=== PATIENT | male | born 1960 | race Hispanic/Latino ===

== ENCOUNTER 2018-12-23 15:49 | Inpatient (IN) | payer OTHER ==
[2018-12-23 15:50] VITALS: PULSE 73; BMI 34.7
[2018-12-23 15:56] VITALS: O2SAT 95
--- NOTE | 2018-12-23 16:01 | ED PDOC ---
Psych Transfer Clearance - Clearance Statement Clearance Statement: Reviewed vital signs, lab results and transfer papers. Patient clinically stable for psychiatric admission.
[2018-12-23] MEDS ORDERED: DiphenhydrAMINE 50 mg/ml Inj IM PRN (16:40)
[2018-12-23] MEDS ORDERED: Magnesium Hydroxide Susp 30 ml UD PO PRN (16:40)
[2018-12-23] MEDS ORDERED: Alum-Mag Hydrox-Simethicone Susp (30 mL) PO PRN (16:40)
--- NOTE | 2018-12-23 17:22 | PCM.BM ---
<DemarioCassie - Last Filed: 12/23/18 17:20> Treatment Plan Problems - Problems identified on initial assessmt Feelings of Worthlessness Date Initiated: 12/23/18 Time Initiated: 17:21 Assessment reference: NA Status: Active Denial Date Initiated: 12/23/18 Time Initiated: 17:21 Assessment reference: NA Status: Active Altered Sleep Patterns Date Initiated: 12/23/18 Time Initiated: 17:22 Assessment reference: NA Status: Active Knowlege Deficit: Alcohol Use Date Initiated: 12/23/18 Time Initiated: 17:23 Assessment reference: NA Status: Active Treatment assets and liabiliti Patient Assests: ADL independent, negotiates basic needs, cognitively intact Patient Liabilities: relationship conflicts, other (Homelessness) - Milieu Protocol Maintain good personal hygiene: daily Encourage regular showers, every shift Remind patient to perform daily oral care, every shift Assist patient to perform ADL's Conduct patient checks and document Observation sheet: Q15 minutes Maintain personal safety: every shift Educate patient to report safety concerns to staff, every shift Monitor environment for contraband/sharps Medication safety: Monitor for expected outcome, potential side effects: every shift, Assess barriers to learning: every shift, Assess readiness for medication education: every shift <Hans Ruiz - Last Filed: 12/27/18 10:29> Family Contact Family involvement: Famliy/SO not involved Family contact: Patient declines to allow family contact at present Family contact name: Pt refused. - Goals for Treatment Patient goals for treatment: Pt reported he is too depressed to formulate goals at this time. However, pt is focused on obtaining help with obtaining stable housing. Discharge/Continuing Care - Education Needs Education Needs: Patient Medication, Patient Diagnosis/Disease Process, Patient Coping Skills, Patient Community resources, Patient Aftercare Safety Plan - Discharge Discharge Criteria: Tolerates medication w/o severe side effects, Free of Suicidal thoughts, Free of agitation, Ability to care for self, Reduction of target symptoms Discharge to:: Group Home - Treatment Team Participation Patient/Family/SO Statement: 12/27/18 10:30 Pt seen in treatment team on 12/26/18 from 1025 until 1027. Pt reported he is "sad." Pt reported he left [employer] and "came right here." Raising of Effexor was discussed. Pt offered no questions or complaints. Pt observed as minimally cooperative, guarded, evasive with underproductive speech. Pt sat with arms crossed, looking down at the table with irritated affect. Pt's affect and mood were rather fixed and not broad. His speech was soft and slow. Pt's thought content and process were logical, yet stagnant. Pt admitted to continued passive SI, but he denied HI and AVT hallucinations. Pt is oriented X4. Pt reported he is on the [facility] list at the [facility]. Pt presented as helpless and hopeless. Discussed with Family/SO: No Was Patient/Family/SO present at Treatment Team Meeting: Yes <Narcisa Brito - Last Filed: 12/27/18 10:38> - Diagnosis (1) Depressive disorder Status: Acute Interventions: 12/27/18 10:38 pharmacotherapy, psychotherapy
--- NOTE | 2018-12-23 17:48 | CP.PCM.CON ---
History of Present Illness - History of Present Illness History of Present Illness: 58 yo male admitted to psyche unit because of worsening depression. Review of Systems - Review of Systems All systems: reviewed and no additional remarkable complaints except (aside from those mentioned above, 12 point system review were negative by me) Past Patient History - Infectious Disease Hx of Infectious Diseases: None - Tetanus Immunizations Tetanus Immunization: Unknown - Past Medical History & Family History Past Medical History?: Yes - Past Social History Smoking Status: Former Smoker Chewing Tobacco Use: No Cigar Use: No Alcohol: > 2 Drinks/Day Drugs: Denies - CARDIAC Hx Atrial Fibrillation: Yes Hx Cardia Arrhythmia: Yes (afib) Hx Hypertension: Yes (x 6yrs, takes meds on and off) Hx Peripheral Edema: Yes - PULMONARY Hx Tuberculosis: No - NEUROLOGICAL Hx Neurological Disorder: No HX Cerebrovascular Accident: No Hx Seizures: No - HEENT Hx HEENT Problems: No - RENAL Hx Chronic Kidney Disease: No - ENDOCRINE/METABOLIC Hx Endocrine Disorders: No - HEMATOLOGICAL/ONCOLOGICAL Hx Blood Disorders: No Hx Cancer: No Hx Human Immunodeficiency Virus (HIV): No - INTEGUMENTARY Hx Dermatological Problems: No - MUSCULOSKELETAL/RHEUMATOLOGICAL Hx Fractures: Yes - GASTROINTESTINAL Hx Gastrointestinal Disorders: No - GENITOURINARY/GYNECOLOGICAL Hx Genitourinary Disorders: No Hx Sexually Transmitted Disorders: No - PSYCHIATRIC Hx Depression: Yes (hx of dep since age 43) Hx Physical Abuse: No Hx Sexual Abuse: No Hx Substance Use: No - SURGICAL HISTORY Hx Surgeries: Yes Hx Orthopedic Surgery: Yes Other/Comment: had sx to drain left elbow infection 10 yrs ago - ANESTHESIA Hx Anesthesia: Yes Meds Allergies/Adverse Reactions: Allergies Allergy/AdvReac Type Severity Reaction Status Date / Time bee venom protein (honey bee) Allergy URTICARIA Verified 12/23/18 11:35 - Medications Medications: Current Medications Acetaminophen (Tylenol 325mg Tab) 650 mg PO Q4 PRN PRN Reason: Pain, moderate (4-7) Al Hydrox/Mg Hydrox/Simethicone (Maalox Plus 30 Ml) 30 ml PO Q4 PRN PRN Reason: Dyspepsia Diphenhydramine HCl (Benadryl) 50 mg IM Q6 PRN PRN Reason: Extrapyramidal S/S Unable PO Diphenhydramine HCl (Benadryl) 50 mg PO Q6 PRN PRN Reason: Muscle spasm Haloperidol (Haldol) 5 mg PO Q4 PRN PRN Reason: Agitation Haloperidol Lactate (Haldol) 5 mg IM Q4 PRN PRN Reason: Agitation, Unable to Take PO Lorazepam (Ativan) 2 mg IM Q4 PRN PRN Reason: Anxiety/Agitation,Unable PO Lorazepam (Ativan) 2 mg PO Q6 PRN PRN Reason: Agitation Magnesium Hydroxide (Milk Of Magnesia) 30 ml PO HS PRN PRN Reason: Constipation Venlafaxine HCl (Effexor Xr) 150 mg PO DAILY NABILA Physical Exam - Constitutional Appears: No Acute Distress - Head Exam Head Exam: ATRAUMATIC - Eye Exam Eye Exam: absent: Scleral icterus - ENT Exam ENT Exam: Mucous Membranes Moist - Neck Exam Neck exam: Negative for: Meningismus - Respiratory Exam Respiratory Exam: absent: Rales, Rhonchi, Wheezes, Respiratory Distress - Cardiovascular Exam Cardiovascular Exam: REGULAR RHYTHM, +S1, +S2 - GI/Abdominal Exam GI & Abdominal Exam: Soft. absent: Tenderness - Rectal Exam Rectal Exam: Deferred - Neurological Exam Neurological exam: Alert, Oriented x3 - Psychiatric Exam Psychiatric exam: Normal Affect - Skin Skin Exam: Dry, Intact Results - Vital Signs Recent Vital Signs: Last Vital Signs Temp 98.7 F 12/23/18 15:50 Pulse 70 12/23/18 16:40 Resp 19 12/23/18 15:50 BP 119/81 12/23/18 15:55 Pulse Ox 95 12/23/18 15:50 Assessment & Plan (1) Depressive disorder Status: Acute Comment: psyche is managing
[2018-12-24] MEDS: Venlafaxine 150 mg ER Cap PO SCH (08:49)
--- NOTE | 2018-12-24 11:04 | PCM.PSYCH ---
Initial Psychiatric Evaluation - Initial Psychiatric Evaluation Type of Admission: Voluntary Legal Status: Capacity Chief Complaint (in patient's own words): I feel depressed and anxious History of Present Illness and Precipitating Events: pt is 58 ys old male with previous diagnosis of depression and alcohol dependence, came to ER seeking help due to increased depression with passive suicidal ideation, pt has been with [employer] for past six months , was feeling overwhelmed because of the magnitude of work, pt decided to leave, now became homeless and facing multiple financial difficulties denied active thoughts of self harm on the unit,denied perceptual disturbances Current Medications: Active Medications Generic Name Dose Route Start Last Admin Trade Name Freq PRN Reason Stop Dose Admin Acetaminophen 650 mg 12/23/18 16:40 Tylenol 325mg Tab PO Q4 PRN Pain, moderate (4-7) Al Hydrox/Mg Hydrox/Simethicone 30 ml 12/23/18 16:40 Maalox Plus 30 Ml PO Q4 PRN Dyspepsia Diphenhydramine HCl 50 mg 12/23/18 16:40 Benadryl IM Q6 PRN Extrapyramidal S/S Unable PO Diphenhydramine HCl 50 mg 12/23/18 16:50 12/23/18 21:10 Benadryl PO 50 mg Q6 PRN Administration Muscle spasm Diphenhydramine HCl 50 mg 12/23/18 21:20 Benadryl PO HS PRN Sleep Docusate Sodium 100 mg 12/23/18 18:45 12/24/18 08:49 Colace PO 100 mg BID NABILA Administration Gabapentin 200 mg 12/24/18 13:00 Neurontin PO TID NABILA Haloperidol 5 mg 12/23/18 16:40 Haldol PO Q4 PRN Agitation Haloperidol Lactate 5 mg 12/23/18 16:40 Haldol IM Q4 PRN Agitation, Unable to Take PO Hydroxyzine Pamoate 50 mg 12/24/18 10:53 Vistaril PO Q8 PRN Anxiety Lorazepam 2 mg 12/23/18 16:40 Ativan IM Q4 PRN Anxiety/Agitation,Unable PO Magnesium Hydroxide 30 ml 12/23/18 16:40 Milk Of Magnesia PO HS PRN Constipation Venlafaxine HCl 150 mg 12/24/18 09:00 12/24/18 08:49 Effexor Xr PO 150 mg DAILY NABILA Administration Past Psychiatric History - Past Psychiatric History Explanation of prior treatment: multiple hospitalizations at [facility] for detox History of ETOH/Drug Use: alcohol dependence in remission Pertinent Medical Hx (Current Medical&Sleep Prob, Allergies): Allergies Allergy/AdvReac Type Severity Reaction Status Date / Time bee venom protein (honey bee) Allergy URTICARIA Verified 12/23/18 11:35 Zoloft 12/23/18 Mental Status Examination - Personal Presentation Personal Presentation: Looks older than stated age - Affect Affect: Constricted, Depressed - Motor Activity Motor Activity: Psychomotor Retardation - Reliability in Providing Information Reliability in Providing Information: Fair - Speech Speech: Relevant - Mood Mood: Depressed, Anxious - Formal Thought Process Formal Thought Process: No Impairment - Cognitive Functions Sensorium: Alert Attention/Concentration: Attentive Estimate of Intelligence: Average Judgement: Imparied, as evidence by: Poor judgement, Imparied, as evidence by: Lack of insight into illness - Risk Risk: Suicidal, Diminished functioning - Strength & Assets Inventory Strength & Assets Inventory: Life experience - Limitations Additional comments: homeless DSM 5 DX - DSM 5 DSM 5 Diagnosis: major 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
[2018-12-25] MEDS: Venlafaxine 150 mg ER Cap PO SCH ×2 (10:59→12:43)
--- NOTE | 2018-12-25 18:04 | PCM.PYCHPN ---
Psychiatric Progress Note - Psychiatric Progress Note Patient seen today, length of contact: chart reviewed, case discussed with team, pt seen Patient Chief Complaint: alteration in mood, alteration in self care Problems Identified/Issues Discussed: alteration in mood alteratin in self care Medical Problems: per chart Diagnostic Results: per psychiatry per medicine per nursing per social worker psychiatric DSM 5 Symptoms Update: anxiety has refused gabapentin today as well refused effexor Medication Change: No Medical Record Reviewed: Yes Consults ordered or reviewed: pt being followed by medical team Mental Status Examination - Cognitive Function Orientation: Person, Place, Situation Memory: Intact Association: Loose Decription of patient's judgement and insights: impaired - Mood Mood: Depressed, Anxious - Affect Affect: Constricted, Depressed - Formal Thought Process Formal Thought Process: No Impairment - Homicidal Ideation Homicidal Ideation: No Goal/Treatment Plan - Goal/Treatment Plan Progress Toward Problem(s) and Goals/Treatment Plan: inpt milieu adjust meds per clinical status psycho education related to medication possible benefits as well as possilble assistance with potential withdrawals discharge planning in progress-team can readdress assess in am Estimated Date of D/C: 12/28/18 - Smoking Cessation Smoking Cessation Initiated: No Reason for not providing: pt defers
[2018-12-26] MEDS: Venlafaxine 150 mg ER Cap PO SCH (08:58)
--- NOTE | 2018-12-26 15:28 | PCM.PYCHPN ---
Psychiatric Progress Note - Psychiatric Progress Note Patient seen today, length of contact: chart reviewed, case discussed with team, pt seen Patient Chief Complaint: I still feel down Problems Identified/Issues Discussed: pt evaluated with treatment team, presenting with depressed mood and affect, anhedonia , low energy, discussed with pt increasing dose of effexor gradually encouraged pt to attend groups, no reported side effects,no changes in sleep or appetite, pt denied active thoughts of self harm on the unit Medical Problems: multiple hospitalizations at [facility] for detox DSM 5 Symptoms Update: major depression Medication Change: No Medical Record Reviewed: Yes Mental Status Examination - Cognitive Function Orientation: Person, Place, Situation Memory: Intact Attention: WNL Concentration: WNL Association: WNL Fund of Knowledge: Poor Decription of patient's judgement and insights: partial insight poor judgment - Mood Mood: Depressed, Anxious - Affect Affect: Constricted, Depressed - Speech Speech: Soft - Formal Thought Process Formal Thought Process: No Impairment, Circumstantial - Suicidal Ideation Suicidal Ideation: No - Homicidal Ideation Homicidal Ideation: No Goal/Treatment Plan - Goal/Treatment Plan Need for Continued Stay: Severe depression anxiety, Discharge may exacerbated symptoms Progress Toward Problem(s) and Goals/Treatment Plan: increase effexor 150mg dailyand 37.5mg daily cbr motivational and group therapy Estimated Date of D/C: 12/28/18
[2018-12-27] MEDS: Venlafaxine 150 mg ER Cap PO SCH (08:47)
[2018-12-27] MEDS: Venlafaxine 37.5 mg ER Cap PO SCH ×2 (09:00→16:59)
--- NOTE | 2018-12-27 10:41 | PCM.PYCHPN ---
Psychiatric Progress Note - Psychiatric Progress Note Patient seen today, length of contact: chart reviewed, case discussed with team, pt seen Patient Chief Complaint: I still feel anxious Problems Identified/Issues Discussed: pt evaluated , reporting feeling anxious, worried about his current living situation and having to be in a jail, pt observed on the unit interacting with other peers, no reported changes in sleep or appetite , no reported sucidal or homicidal ideation, no reported perceptual disturbances Medical Problems: multiple hospitalizations at [facility] for detox DSM 5 Symptoms Update: major depression Medication Change: No Medical Record Reviewed: Yes Mental Status Examination - Cognitive Function Orientation: Person, Place, Situation Memory: Intact Attention: WNL Concentration: WNL Association: WNL Fund of Knowledge: Poor Decription of patient's judgement and insights: partial insight poor judgment - Mood Mood: Depressed, Anxious - Affect Affect: Constricted, Depressed - Speech Speech: Soft - Formal Thought Process Formal Thought Process: No Impairment, Circumstantial - Suicidal Ideation Suicidal Ideation: No - Homicidal Ideation Homicidal Ideation: No Goal/Treatment Plan - Goal/Treatment Plan Need for Continued Stay: Severe depression anxiety, Discharge may exacerbated symptoms Progress Toward Problem(s) and Goals/Treatment Plan: effexor 150mg dailyand 37.5mg daily cbt motivational and group therapy Estimated Date of D/C: 12/28/18
[2018-12-27 18:14] VITALS: RESP 20
[2018-12-28] MEDS: Venlafaxine 37.5 mg ER Cap PO SCH (09:34)
[2018-12-28] MEDS: Venlafaxine 150 mg ER Cap PO SCH (09:35)
[2018-12-28 09:40] VITALS: BP 121/83; PULSE 100; TEMP 98.4
--- NOTE | 2018-12-28 13:12 | PCM.PYCHDC ---
Mental Status Examination - Mental Status Examination Orientation: Person, Place, Situation Memory: Intact Mood: Neutral Affect: Constricted Speech: Appropriate Attention: WNL Concentration: WNL Association: WNL Fund of Knowledge: WNL Formal Thought Process: Circumstantial Description of patient's judgement and insight: partial insight poor judgment Psychotic Thoughts and Behaviors: pt denied psychotic symptoms, non elicited Suicidal Ideation: No Current Homicidal Ideation?: No Discharge Summary - Discharge Note Reason for Hospitalization: t is 58 ys old male with previous diagnosis of depression and alcohol dependence, came to ER seeking help due to increased depression with passive suicidal ideation, pt has been with [email or web address] for past six months , was feeling overwhelmed because of the magnitude of work, pt decided to leave, now became homeless and facing multiple financial difficulties denied active thoughts of self harm on the unit,denied perceptual disturbances Consultations:: List each consultation separately and include: 1. Reason for request. 2. Findings. 3. Follow-up Summary of Hospital Course include:: 1. Description of specific treatment plan utilized for patients during their course of treatmen. 2. Summarize the time- course for resolution of acute symptoms and/or regressed behaviors. 3. Describe issues identified and worked on during hospitalization. 4. Describe medication utilized. 5. Describe medical problems identified and treated. 6. 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
== END 2018-12-28 14:47 | disposition home or self-care (01) | DRG 430 ==
LOC: H.ER 15:49 → H.ERHOLD 15:59 → H.PSYCH 16:22
PROVIDERS: ADMIT Psychiatry & Neurology Psychiatry; ATTEND Psychiatry & Neurology Psychiatry
PROC: GZHZZZZ Group Psychotherapy (ICD-10-PCS; principal; 2018-12-25)
DX: F33.9 Major depressive disorder, recurrent, unspecified (principal); F10.21 Alcohol dependence, in remission; F41.9 Anxiety disorder, unspecified; I10 Essential (primary) hypertension; I48.91 Unspecified atrial fibrillation; R45.851 Suicidal ideations; Z87.891 Personal history of nicotine dependence